=== PATIENT | male | born 1975 | race Asian ===

== ENCOUNTER 2019-05-02 15:59 | Emergency (ER) | payer OTHER ==
[~2019-05-02] VITALS: Ht 177.8 cm; Wt 79.5 kg
[~2019-05-02 15:59] MED LIST: NOCURR
[2019-05-02 16:07] VITALS: BP 150/82
[2019-05-02] MEDS ORDERED: HYDROCODONE/ACETAMINOPHEN 5-325 MG TABLET PO ONE (16:45)
[2019-05-02] MEDS ORDERED: IBUPROFEN 800 MG TABLET PO ONE (16:45)
== END 2019-05-02 17:58 | disposition left against medical advice (07) ==
LOC: EMS 15:59
DX: M25.572 Pain in left ankle and joints of left foot (principal); F17.210 Nicotine dependence, cigarettes, uncomplicated

== ENCOUNTER 2019-05-04 12:41 | Emergency (ER) | payer OTHER ==
[~2019-05-04] VITALS: Ht 177.8 cm; Wt 79.5 kg
[2019-05-04 14:21] LABS: INFLUENZA TYPE A NEGATIVE FOR TYPE A (NEGATIVE); INFLUENZA TYPE B NEGATIVE FOR TYPE B (NEGATIVE)
[2019-05-04 16:30] VITALS: BP 126/77
[2019-05-04] MEDS ORDERED: KETOROLAC TROMETHAMINE 30 MG/ML VIAL IM ONE (16:30)
== END 2019-05-04 16:44 | disposition home or self-care (01) ==
LOC: EMS 12:44
DX: S82.62XA Displaced fracture of lateral malleolus of left fibula, initial encounter for closed fracture (principal); J40 Bronchitis, not specified as acute or chronic; R03.0 Elevated blood-pressure reading, without diagnosis of hypertension; F17.210 Nicotine dependence, cigarettes, uncomplicated; W11.XXXA Fall on and from ladder, initial encounter; Y93.39 Activity, other involving climbing, rappelling and jumping off; Y92.89 Other specified places as the place of occurrence of the external cause; Y99.8 Other external cause status
CPT/HCPCS: 29515; 71046; 73610; 73630; 87804; 96372; 99284; J1885

== ENCOUNTER 2022-03-15 19:13 | Emergency (ER) | payer OTHER ==
[~2022-03-15] VITALS: Ht 177.8 cm; Wt 97.3 kg
[2022-03-15 19:26] VITALS: BP 116/65
[2022-03-15] MEDS ORDERED: KETOROLAC TROMETHAMINE 30 MG/ML VIAL IM ONE (20:30)
[2022-03-15] MEDS ORDERED: LIDOCAINE 5% TRANSDERMAL PATCH TD ONE (20:30)
== END 2022-03-15 20:35 | disposition home or self-care (01) ==
LOC: EMS 19:14
DX: S29.012A Strain of muscle and tendon of back wall of thorax, initial encounter (principal); F17.210 Nicotine dependence, cigarettes, uncomplicated; X50.1XXA Overexertion from prolonged static or awkward postures, initial encounter; Y93.89 Activity, other specified; Y92.89 Other specified places as the place of occurrence of the external cause; Y99.8 Other external cause status
CPT/HCPCS: 99283; 96372; J1885

== ENCOUNTER 2023-08-26 12:24 | Emergency (ER) | payer OTHER ==
[~2023-08-26] VITALS: Ht 177.8 cm; Wt 95.5 kg
[2023-08-26 12:31] VITALS: TEMP 98.5
[2023-08-26] MEDS ORDERED: IBUP-1554 PO (14:30)
[2023-08-26] MEDS ORDERED: CEPH-558 PO (14:30)
[2023-08-26] MEDS ORDERED: DOXY-354 PO (14:30)
[2023-08-26 14:39] VITALS: BP 133/86; PULSE 94; RESP 16
== END 2023-08-26 15:19 | disposition home or self-care (01) ==
LOC: EMS 12:24
DX: L02.32 Furuncle of buttock (principal); F17.210 Nicotine dependence, cigarettes, uncomplicated
CPT/HCPCS: 99283

== ENCOUNTER 2023-09-18 21:45 | Emergency (ER) | payer OTHER ==
[~2023-09-18] VITALS: Ht 177.8 cm; Wt 95.5 kg
[~2023-09-18 21:45] MED LIST changes: +CEPH-558 PO; +DOXY-354 PO; +IBUP-1554 PO; -NOCURR
[2023-09-18 21:52] VITALS: BP 100/71; PULSE 89; RESP 16; TEMP 97.9
[2023-09-19] MEDS ORDERED: BACTDSB PO (00:17)
[2023-09-19] MEDS ORDERED: IBUP-1492 PO (00:17)
[2023-09-19] MEDS ORDERED: CEPH-558 PO (00:17)
[2023-09-19] MEDS: IBUPROFEN 600 MG TABLET PO ONE (00:21)
[2023-09-19] MEDS: CEPHALEXIN MONOHYDRATE 500 MG CAPSULE PO ONE (00:21)
[2023-09-19] MEDS: SULFAMETHOX/TRIMETH DS 800-160 MG/TABLET PO ONE (00:21)
== END 2023-09-19 00:41 | disposition home or self-care (01) ==
LOC: EMS 21:45
DX: L03.317 Cellulitis of buttock (principal); F17.210 Nicotine dependence, cigarettes, uncomplicated
CPT/HCPCS: 99284; Z7502; Z7610